=== PATIENT | female | born 2000 | race Caucasian/White ===

== ENCOUNTER 2024-07-04 23:51 | Emergency (ER) | payer MEDICAID, SELFPAY ==
[2024-07-04 23:51] VITALS: BP 141/101; PULSE 102; RESP 14; TEMP 37.2; O2SAT 99; BMI 36.1
--- NOTE | 2024-07-04 23:56 | EDS_ITS ---
HPI History of Present Illness Chief Complaint: Complaint Informant: patient Onset/Context/Timing Onset: Days (3) Context: Gradual Onset Timing: Continuous Quality: Burning, pressure Location: Suprapubic area Worsened by: Nothing Relieved by: Nothing Narrative Narrative: Patient presents with dysuria and hematuria that has been getting worse over the past 3 days. Patient states it has gradually gotten worse. Patient states the pain is worse tonight. Patient denies any fevers or chills. Patient states her pain radiates into her lower back. Patient states she has a burning sensation when she urinates. Patient states she has pressure in her suprapubic area. Patient admits to some mild vaginal bleeding. Patient states nothing makes her pain better and nothing makes it worse. Patient denies any nausea or vomiting. PFSH PFSH Medical History (Updated 07/05/24 @ 00:[address] Ian Ma DO) ADHD Exercise-induced asthma Medical History no medical history no medical history Home Medications ?Medication ?Instructions ?Recorded ?Last Taken ?Type phenazopyridine 200 mg tablet 200 mg PO TID #6 tabs 07/05/24 Unknown Rx (Pyridium) sulfamethoxazole 800 1 tab PO BID #6 TABLETS 07/05/24 Unknown Rx mg-trimethoprim 160 mg tablet Allergy/AdvReac Type Severity Reaction Status Date / Time No Known Allergies Allergy Verified 07/04/24 23:52 Surgical History no surgical history no surgical history Social History (Updated 07/05/24 @ 00:[address] Ian Ma DO) Smoking Status: Current every day smoker tobacco type: cigarettes ROS ROS ED Constitutional Constitutional ED: Denies chills or fever(s) Eyes Eyes: Denies blurry vision or change in vision ENT ENT ED: Denies rhinorrhea or sore throat Cardiovascular Cardiovascular: Denies chest pain or palpitations Respiratory/Chest Respiratory/Chest: Denies cough or dyspnea Gastrointestinal Gastrointestinal: Denies nausea or vomiting Genitourinary Genitourinary ED: Reports dysuria, hematuria and urinary frequency Musculoskeletal Musculoskeletal: Denies back pain or neck pain Integumentary Denies abscess or rash Neurologic Neurologic: Denies headache(s) or weakness Allergic/Immunologic Allergic/Immunologic ED: Denies mouth swelling or urticaria EXAM Physical Exam Const Vital Signs: 07/04/24 23:51 Temperature 98.9 F Temperature Source Temporal Pulse Rate 102 H Respiratory Rate 14 Blood Pressure 141/101 H Blood Pressure Mean 114 Pulse Ox 99 Oxygen Delivery Method Room Air Positive well nourished and well developed General Appearance ED: well developed and NAD HEENT Reports moist mucous membranes Neck supple and no JVD Resp normal respiratory effort and clear to auscultation bilaterally Cardio regular rate and regular rhythm GI non-distended Palpation: soft and tender epigastric, LLQ, RLQ, LUQ, RUQ, periumbilical and suprapubic; Negative for guarding or rebound tenderness present Extremity normal to inspection General Extremety ED: Negative for edema or tenderness General Extremity: Negative for edema Neuro oriented x3, CN's II-XII intact bilaterally and no sensory deficits noted Sensorium / Orientation: alert Motor Exam: strength 5/5 throughout Psych mental status grossly normal MDM MDM MDM Narrative Medical decision making narrative: Differential diagnosis includes urinary tract infection and vaginitis. Urinalysis will be obtained to assess for urinary tract infection and hematuria. Urine hCG will be obtained to assess for . Lab Data Attestation: I reviewed the patient's lab results. Lab results narrative: Urine hCG was reviewed and was negative. Urinalysis was reviewed. Occult blood was 250 with 5-10 red blood cells. Leukocyte esterase was 25 with 5-10 white blood cells. There is rare bacteria. Labs: Laboratory Results - last 24 hr 07/05/24 00:07 Urine Color Yellow Urine Clarity Clear Urine pH 6.0 Ur Specific [place] 1.015 Urine Protein 100 H Urine Glucose (UA) Normal Urine Ketones Negative Urine Occult Blood 250 H Urine Nitrite Negative Urine Bilirubin Negative Urine Urobilinogen Normal Ur Leukocyte Esterase 25 H Urine RBC 5-10 SEEN Urine WBC 5-10 SEEN Ur Squamous Epith Cells 0-5 SEEN Ur Transition Epith Cell 0-5 SEEN Urine Bacteria RARE Urine Mucus 0 SEEN Urine Test Negative Additional Tests and Interventions Additional Tests or Interventions: Urine culture was ordered. Treatment and Re-Evaluation :: Smoking cessation was discussed. Patient was given a dose of Pyridium here. Because of the patient's symptoms, will cover the patient with a short course of Bactrim. Patient was given a prescription for a short course of Pyridium. Patient was instructed to follow-up with her primary care physician in 3 to 5 days for urine culture results. Patient was instructed to return if worse in any way. Patient understood and was agreeable with the plan. All questions were answered. Discharge Plan Triage Chief Complaint: Complaint ED Provider: Ian aM Dx/Rx/DC Orders Clinical Impression: Dysuria, Tobacco use Instructions: ED Cystitis Female Adult Prescriptions: New phenazopyridine [Pyridium] 200 mg tablet 200 mg PO TID Qty: 6 0RF sulfamethoxazole-trimethoprim 800-160 mg tablet 1 tab PO BID Qty: 6 0RF Primary Care Provider: Care Physician,No Primary Referrals: Omar Jimenez DO [Med Staff - Station Engineer Chief] - 3-5 Days Print Language: Khmer Disposition Disposition: Home, Self Care
[2024-07-05] MEDS: Phenazopyridine 95 MG Tablet 190 MG PO (00:10)
[2024-07-05 00:14] LABS: Mucous, Urine 0 SEEN /hpf (<or=2+)
[2024-07-05 00:37] LABS: Color, Urine Yellow (Yellow); Urine Clarity Clear (Clear)
[2024-07-05 00:38] LABS: Bacteria RARE /hpf (None Seen); Glucose, Dipstick Normal (Normal); Internal QC Validated? YES +Cl - CLEAR BKGD; Ketone-Dipstick Negative (Negative); Leukocyte Esterase-Dipstick 25 /ul (Negative); Nitrite-Dipstick Negative (Negative); Occult Blood-Urine 250 /ul (Negative); Pregnancy, Urine Negative Negative; Protein-Dipstick 100 mg/dl (Negative); Red Blood Cells-Urine 5-10 SEEN /hpf (0-5); Specific Gravity, Urine 1.015 (1.002-1.030); Squamous Epithelial Cells - UA 0-5 SEEN /hpf (5-10); Transitional Epithelial - Ur 0-5 SEEN /hpf (0-5); Urine Bilirubin Dipstick Negative (Negative); Urine Urobilinogen Normal (Normal); White Blood Cells 5-10 SEEN /hpf (0-5)
[2024-07-05] MEDS: Smz/Tmp Ds Tablet 1 TABLET PO (00:54)
== END 2024-07-05 00:57 | disposition home or self-care (01) ==
PROVIDERS: Emergency Provider Emergency Medicine; Visit Provider Emergency Medicine
DX: R30.0 Dysuria (principal); F17.210 Nicotine dependence, cigarettes, uncomplicated
CPT/HCPCS: 81001; 81025; 87086; 87088; 87186; 99282